=== PATIENT | male | born 1945 | race Caucasian/White ===

== ENCOUNTER 2025-03-08 21:51 | Emergency (ER) | payer MEDICARE, OTHER, SELFPAY ==
[2025-03-08 21:55] VITALS: BMI 25.4
[2025-03-08 21:56] VITALS: BP 107/61; BP 93/60
[2025-03-08 22:00] VITALS: BP 93/60
[2025-03-08 22:16] LABS: Hematocrit 37.8 % (39.0-52.0); Hemoglobin 13.2 g/dL (13.0-18.0); Mean Corp Hgb Conc. 34.9 g/dL (33.0-37.0); Mean Corpuscular Volume 90.4 fL (80.0-94.0); Nucleated Red Blood Cells % 0 % (-); Platelet Count 179 10^3/uL (130-400); Red Cell Dist. Width 12.4 % (11.5-14.5)
[2025-03-08 22:39] LABS: Troponin I < 0.012 ng/ml
[2025-03-08 22:42] LABS: ALT (SGPT) 20 U/L (0-50); AST (SGOT) 20 U/L (17-59); Albumin 4.5 g/dl (3.5-5.0); Alkaline Phosphatase 39 U/L (38-126); Blood Urea Nitrogen 36 mg/dl (9-20); Calcium 9.7 mg/dl (8.4-10.2); Carbon Dioxide 20 mmol/L (22-30); Chloride 105 mmol/L (98-107); Estimated Creatinine Clearance 39 ml/min; Glucose 104 mg/dl (70-99); Potassium 4.0 mmol/L (3.5-5.1); Sodium 138 mmol/L (135-145); Total Protein 7.6 g/dl (6.3-8.2); eGFR 38.05
[2025-03-08 23:00] VITALS: BP 115/62
[2025-03-09] VITALS: BP 117/67
[2025-03-09] MEDS: NSS 500 IV (00:14)
--- NOTE | 2025-03-09 00:21 | ED.GENMED ---
History of Present Illness
General
Chief Complaint: Fainting/Passed Out
Source: patient and family (Patient's family member (son/daughter) states that patient was pale and ford and unresponsive for a brief period time)
Time Seen by Provider: 03/08/25 22:17
History of Present Illness
History of Present Illness:
Note:
CHIEF COMPLAINT(S)
Syncope
HISTORY OF PRESENT ILLNESS
The patient is a 79-year-old male with no significant past medical history apart from occasional use of lisinopril. He presented to the emergency department after experiencing a syncopal episode. The event occurred while attending a wedding, where
he reported being aware of the need to stay hydrated but consumed minimal fluids, including two small cups of a lemonade-water mix and two Manhattans. The patient was wearing a black suit in the sun and mentioned not being a person who sweats
profusely. He described feeling uncomfortable and attributed some of the symptoms to dehydration and heat exposure. He noted injuring his Achilles on a prior day, which caused some pain when dancing and standing, leading to him feeling the need to
sit down during the wedding.
The patient detailed a sensation of 'haze' or 'fuzzy look' and decided to close his eyes, leading to an episode of loss of consciousness for approximately two minutes during which bystanders noted he was unresponsive and appeared ford. On regaining
consciousness, he ingested some water and regained color slowly. He reported concerns about possibly having low blood pressure and nausea briefly following the episode, but denied any chest pain, shortness of breath, or palpitations before or during
the event.
A review of the incident by present family members confirmed the absence of precipitous symptoms like sweating and noted that his color returned gradually as medical assistance arrived. The patient expressed concern about his blood pressure
potentially being low. He also mentioned being told by another physician about a faint heart murmur.
PAST MEDICAL AND SURIGICAL HISTORY
Prescribed lisinopril for unspecified reason.
CHRONIC MEDICAL CONDITIONS SIGNIFICANTLY AFFECTING CARE
Possible heart murmur, likely related to mild aortic stenosis.
REVIEW OF SYSTEMS
- Cardiovascular: Syncope, possible low blood pressure, concern about dehydration.
- Neurological: 'Haze' or 'fuzzy' vision prior to syncope, no preceding aura or paralysis.
- Gastrointestinal: Brief nausea post-event.
- Musculoskeletal: Prior Achilles tendon discomfort exacerbated by act of dancing.
- Others: Denied chest pain, palpitations, shortness of breath.
PHYSICAL EXAM
General: Alert, no acute distress.
Skin: Warm, dry.
Head: Normocephalic, atraumatic.
Neck: Supple, trachea midline.
Eye Ears, nose, mouth and throat: Oral mucosa moist.
Cardiovascular: Normal peripheral perfusion, No edema, heart murmur noted.
Respiratory: Respirations are non-labored.
Gastrointestinal: Abdomen nondistended.
Back: Normal range of motion, Normal alignment.
Musculoskeletal: Normal ROM, normal strength, acknowledged Achilles discomfort.
Neurological: Alert and oriented to person, place, time, and situation, No focal neurological deficit observed.
Psychiatric: Cooperative, appropriate mood & affect.
PROBLEM LIST
Acute:
- Syncope, likely related to vaso-vagal response with contributing factors of dehydration, alcohol consumption, and heat exposure.
Chronic:
- Mild heart murmur potentially indicating aortic stenosis.
PLAN
- Monitor vital signs and ensure patient hydration.
- Request for laboratory assessments to rule out significant anemia or electrolyte imbalance.
- Recommend follow-up with the primary care physician to monitor potential aortic stenosis.
- Consider echocardiogram to evaluate the heart murmur and any possible valvular abnormalities.
- Educate the patient on recognizing early signs of syncope and recommend immediate measures such as lying down with legs elevated.
- Advise gradual position changes to minimize orthostatic effects.
- Explain the benign nature of vaso-vagal syncope, provided no arrhythmic or structural heart disease is identified.
DIFFERENTIAL DIAGNOSIS
The Differential Diagnosis includes, in no particular order and is not limited to:
- Vaso-vagal syncope
- Dehydration-induced syncope
- Orthostatic hypotension
- Arrhythmia
- Aortic stenosis-related syncope
- Anemia
- Neurological event (such as transient ischemic attack)
- Electrolyte imbalance
- Alcohol-induced syncope
- Syncope secondary to medication effect (e.g., vasodilatory effects of lisinopril).
EKG
My independent EKG interpretation is:
- Time of EKG: Not specified
- Rhythm: Normal sinus rhythm
- Heart Rate: Not specified
- RI Interval: Normal
- QRS Duration: Normal
- QT Interval: Normal
- [place]: Normal
- Abnormalities: None observed
CARE-UPDATE
03/09/25 - 00:19
The patients kidney function is slightly impaired, and there is a mild acidosis indicating dehydration, which likely contributed to a more pronounced vasovagal syncope. The EKG results are normal, as are the cardiac enzymes. Until a follow-up with
Dr. Gaffney, it is advised to hold off on Lisinopril, especially since the patients blood pressure is stable, to prevent further kidney strain. Intravenous fluids are being administered to address dehydration and potentially resolve laboratory
abnormalities. It is expected that repeating blood work in one to two weeks will show improvement if hydration levels are maintained. Discharge instructions include follow-up reminders, copies of lab results, and a summary of findings, including
mention of a heart murmur. The patient and their family have been informed, and further questions have been invited for discussion.
Disposition:
SUMMARY OF ENCOUNTER
The patient is a 79-year-old male who presented to the emergency department following a syncopal episode at a wedding, likely due to vaso-vagal syncope. This incident occurred in the context of dehydration and alcohol consumption. Upon evaluation,
the patient reported feeling hot and experienced loss of consciousness temporarily. Laboratory reviews show normal troponin, sodium, potassium, and blood glucose levels. However, there is a noted creatinine level of 1.8 and a slight acidosis with
bicarbonate at 20. The patient demonstrated recovery, reported feeling well, and showed no further symptoms. His EKG indicated normal sinus rhythm.
DISPOSITION
Discharge
ASSESSMENT
Vaso-vagal syncope likely precipitated by dehydration and alcohol consumption at the wedding. Renal insufficiency noted with elevated creatinine and mild acidosis.
PLAN
- Monitor stable renal function and correct dehydration.
- Hold lisinopril due to current renal status.
- Follow-up with primary care physician regarding the heart murmur and repeat laboratory assessments.
INDEPENDENT REVIEW OF LABS AND INTERPRETATION OF TESTS
My independent review of lab results indicates:
- Normal white blood cell count and hemoglobin.
- Elevated creatinine at 1.8, suggesting renal insufficiency.
- Normal sodium and potassium levels.
- Slight acidosis indicated by a bicarbonate level of 20.
- An anion gap of 13, which is within normal limits.
- Normal troponin levels.
PATIENT EDUCATION AND COUNSELING
The patient was advised on signs of syncope and preventative measures, including hydration and avoiding prolonged standing in hot environments. He was educated on the importance of stopping lisinopril temporarily due to renal function concerns.
FOLLOW-UP INSTRUCTIONS
The patient is advised to follow up with his primary care physician to monitor potential aortic stenosis and to repeat laboratory tests as indicated.
MEDICATION RECONCILIATION
- Lisinopril was held temporarily due to current renal insufficiency.
MEDICAL DECISION MAKING
-Complexity of Data Reviewed: Possible heart murmur, likely related to mild aortic stenosis, as noted historically by a physician. The syncope is attributed primarily to vaso-vagal causes compounded by dehydration and heat exposure. Reviewed
differential diagnosis includes dehydration-induced syncope, orthostatic hypotension, and possible anemia.
-Data:
Category 1
My independent interpretation of EKG: Normal sinus rhythm.
Lab tests reviewed include creatinine (elevated at 1.8), which is indicative of renal insufficiency, normal sodium, potassium, and white blood cell count, and bicarbonate at 20 indicating slight acidosis.
Category 3
Discussion of management with the patient for lisinopril management and recommendations for follow-up care with a primary care physician regarding heart murmur and laboratory monitoring.
CRITICAL CARE TIME
Consideration of admission was undertaken but ultimately deferred due to reassurance from normalization of vital signs, absence of acute life-threatening issues, and patient feeling well enough for outpatient review.
DIAGNOSIS
- Vasovagal Syncope (ICD-10: R55)
- Dehydration (ICD-10: E86.0)
- Acute Kidney Injury, Stage 1 (ICD-10: N17.9)
- Mild Acidosis (ICD-10: E87.2)
Past History
Past History
ED Past Medical History: None
Social History
Living: with family
Phy Exam
Physical Exam
Physical Exam:
.
Course
Orders/Labs/Results
Orders:
Orders
03/08/25 22:02
Electrocardiogram (*1) Urgent
Reason for Study: Hypertension, Benign
EKG- Treatment ONCE
03/08/25 22:06
Complete Blood Count/With Diff Urgent
Comprehensive Metabolic Panel Urgent
Troponin I Urgent
03/08/25 23:42
0.9% Sodium Chloride 500 ml [Nss] 500 ml IV BOLUS
Abnormal Lab Results
03/08/25
22:06
RBC 4.18 L 10^6/uL
(4.70-6.10)
Hct 37.8 L %
(39.0-52.0)
MCH 31.6 H pg
(27.0-31.0)
Absolute Monos (auto) 0.8 H 10^3/uL
(0.1-0.6)
Monocytes % 10.4 H %
(1.7-9.3)
Carbon Dioxide 20 L mmol/L
(22-30)
BUN 36 H mg/dl
(9-20)
Creatinine 1.8 H mg/dL
(0.7-1.3)
Glucose 104 H mg/dl
(70-99)
03/08/25 22:06
03/08/25 22:06
Vital Signs
Initial and Last Documented VS:
Initial Vital Signs
Temp Pulse Resp BP Pulse Ox
97.9 F 64 12 93/60 97
03/08/25 21:56 03/08/25 21:56 03/08/25 21:56 03/08/25 21:56 03/08/25 21:56
Last Documented Vital Signs
Temp Pulse Resp BP Pulse Ox
97.9 F 81 18 93/60 97
03/08/25 21:56 03/08/25 22:45 03/08/25 22:45 03/08/25 22:00 03/08/25 22:45
*Pulse Oximetry
SaO2: 97
Oxygen Mode of Delivery: Room air
Patient hypoxic: no
*Flight Purser Interpretation
Rate: normal
Interpretation: normal
Rhythm: sinus
*Critical Care Note
Total Time (30-74mins, 75-104mins- exclusive of procedures): Not Applicable
ED Attending Note
-
Portions of this chart may have been created with voice recognition software.� Occasional wrong word or��sound alike� substitutions may have occurred due to the inherent limitations of voice recognition software.
Discharge Plan
Departure
Patient Disposition: Home (Routine Discharge)
Date of Disposition: 03/09/25
Time of Disposition: 00:24
Patient with high blood pressure during this ER visit?: No
Discharge Problem:
Syncope, Acute kidney injury, Dehydration, Cardiac valvulopathy
Instructions: Heart murmurs, Acute kidney injury, Syncope (Fainting) (DC)
Prescriptions:
No Action
lisinopril-hydrochlorothiazide 20-12.5 mg Tablet
1 tab PO DAILY
benzonatate 100 mg Capsule
100 - 200 mg PO TID
multivitamin Tablet
1 tab PO DAILY
zinc acetate 50 mg (zinc) Capsule
50 mg PO DAILY
magnesium 200 mg Tablet
400 mg PO DAILY
acetaminophen [acetaminophen] 325 mg tablet
650 mg PO Q4HPRN PRN (Reason: mild pain) Qty: 1 0RF
ibuprofen 200 mg tablet
400 - 600 mg PO Q6HPRN PRN (Reason: moderate pain) Qty: 1 0RF
tramadol 50 mg tablet
50 mg PO Q6HPRN PRN (Reason: severe pain/breakthrough pain) Qty: 10 0RF
Referrals:
UNKNOWN - PT DOES,NOT KNOW [Family Provider]
Activity Restrictions/Additional Instructions:
Please do not take your lisinopril until further advised by your doctor. Please have your labs repeated in the next 2 weeks to ensure that your kidney function has improved. Please drink plenty of fluids and avoid alcohol. Maintain proper
hydration. In addition, you were found to have a systolic heart murmur. Follow-up with your doctor should include an echocardiogram to further assess. Return immediately for chest pain, shortness of breath, palpitations, passing out episode or
any other concerns.
Interventions
Interventions:
*Risk Screen - Suicide Last Done: 03/08/25 22:01
*General Assessment Last Done: 03/08/25 22:01
*Neglect/Abuse Screening Last Done: 03/08/25 22:01
*ED- Fall Risk Assessment Last Done: 03/08/25 22:01
*ED COVID-19 Vaccine History Last Done: 03/08/25 22:01
ED- Cardiac Assessment Last Done: 03/08/25 21:59
ED- Neurological Assessment Last Done: 03/08/25 21:59
Discharge Date and Time
Print Language: URDU
[2025-03-09 01:01] VITALS: BP 139/85
[2025-03-09 01:15] VITALS: BP 139/85
== END 2025-03-09 01:15 | disposition home or self-care (01) ==
LOC: EMR 21:51
PROVIDERS: Emergency Medicine; EMERGENCY PHYSICIAN Emergency Medicine
DX: R55 Syncope and collapse (principal); N17.9 Acute kidney failure, unspecified; E86.0 Dehydration; E87.20 Acidosis, unspecified; I10 Essential (primary) hypertension
CPT/HCPCS: 99283; 80053; 84484; 85025; 93005